=== PATIENT | male | born 2000 | race Caucasian/White ===

== ENCOUNTER → 2023-01-19 09:15 | Outpatient (BNV) | payer BC, SELFPAY | PROVIDERS: Visit Provider Clinical Nurse Specialist Psychiatric/Mental Health | DX: F21 Schizotypal disorder (principal); F32.9 Major depressive disorder, single episode, unspecified; F41.1 Generalized anxiety disorder | CPT/HCPCS: 90792 ==

== ENCOUNTER 2023-02-03 08:00 | Outpatient (RCR) | payer BC, SELFPAY ==
--- NOTE | 2023-01-20 11:22 | P.HPPSP_ITS ---
HPI Date of Service: 01/20/23 Chief Complaint: depression Sources of Information: patient interviewed, chart reviewed and crisis/core team assessment reviewed HPI Narrative: 22 yo with depression and anxiety who was referred by his sister. pt presents with low mood, anxiety, low energy, poverty of thought, low motivation, passive SI. He reports no social contacts, doesn't go out of house frequently; doesn't interact with family member much (although that is common and usual for his family- they do not converse, share meals, watch TV or play games, go on outings together) He reports disrupted sleep, low appetiteanhedonia, restlessness He is not on any psychiatric meds and does not want any. He states his sister was here in the Spring 2022 and found it helpful so when she urged him to get help he was willing to try program. Past Psychiatric History: no hx IPLOC, rehab, respite or PHP no outpatient treatment PMFSH Family History: born in [facility] when parents worked there for a year. lives in [place] w both bio parents and 2 siblings; He graduated HS and has not been employed or in school since then. Social History: grad HS no hx of employment no social connections plays [employer] and [employer] but plays by himself building a [employer] . Substance History: denies Trauma History: yes my brother was awful. vague details upon asking Meds/Allergies Meds Home Medications Medication Instructions Recorded Confirmed Type No Known Home Meds 01/20/23 01/20/23 History Allergies Allergies Allergy/AdvReac Type Severity Reaction Status Date / Time No Known Allergies Allergy Verified 01/20/23 11:21 Mental Status Exam Mental Status Exam Patient Appearance: Disheveled and Unkempt Patient Orientation: Person, Place, Time and Situation Level of Consciousness: Awake Patient Behavior: Appropriate, Passive, Suspicious, Anxious and Good Eye Contact Mood Description: Withdrawn, Constricted, Anxious and Apprehensive Affect Description: Constricted and Blunted Ability to Follow Directions: Fair Speech Pattern: Impoverished, Difficulty Finding Words and Long Pauses Hallucinations: None Delusions: Not Present Thought Process: Slowed Thinking Thought Content: positive for Poverty of Content Judgement: Poor Assessment & Plan Assessment & Plan (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 pt presents with low mood, anxiety, low energy, poverty of thought, low motivation, passive SI. He reports no social contacts, doesn't go out of house frequently; doesn't interact with family member much (although that is common and usual for his family- they do not converse, share meals, watch TV or play games, go on outings together) He reports disrupted sleep, low appetiteanhedonia, restlessness He is not on any psychiatric meds and does not want any. He states his sister was here in the Spring 2022 and found it helpful so when she urged him to get help he was willing to try program. plan admit to php group per protocol asked pt to consider getting blood wor done discussed option for medication after care pplanning Patient educated on: diagnosis, medication risk/benefits and therapeutic strategies Reason for continued partial hosp. stay Substantial Risk for: harm to self and inability to function Certification I certify that partial hospital treatment is medically necessary due to the symptoms and problems resulting from the patient's mental illness and the failure to treat the patient at the partial hospital level of care would likely result in the patient requiring inpatient psychiatric care which could not be prevented at a less intensive level of care. Time Spent With Patient Time: Total time managing care of this patient today ____ minutes.
[2023-01-20 11:38] VITALS: BP 99/69; PULSE 81; RESP 16; TEMP 37.1
[2023-01-20 13:40] VITALS: BMI 18.9
--- NOTE | 2023-01-20 17:01 | PC.ADMIT ---
22 year old male admitted to [facility] today, 01/20/23. Patient provided little information during nursing assessment. Patient guarded and not easily engaged. Patient was referred by his sister due to increased depression. Patient denies SI without plan or intent. Patient lives at home with his parents, patient has never been employed. Patient spends most of his time at home, alone. States he likes being alone. Patient does not currently have a PCP, Therapist or Psychiatrist. Patient is not on any medications. Patient denies any substance abuse. Safety plan reviewed with patient. Copy of Safety Plan given to patient. Patient was seen by Bhargavi Sawant APRN for medication appointment. Nursing assessment completed and charted.
--- NOTE | 2023-01-20 17:05 | HO.PHP ---
Clients case was reviewed and opened today in treatment team.
--- NOTE | 2023-01-26 09:36 | HO.PHP ---
[facility] staff informed Hector of the closest location she could find for OP therapy and med management, in which it was through [facility] ([facility] in [place]. Hector disclosed that he would like to look the facility up prior to signing a release of information. [facility] staff was receptive.
--- NOTE | 2023-02-02 12:14 | HO.PHP ---
[facility] staff followed up with Hector regarding OP therapy. Hector mentioned that he still needs to talk with his parents around the services. PHP staff reminded him that he is discharging tomorrow and if he needs a referral placed, she needs to know where he would like the clinician to contact. Hector was receptive and stated he will try to remember to talk with his mother. [facility] staff also provided Hector with resources of therapist near his area, that he can also contact. Hector was receptive.
--- NOTE | 2023-02-03 11:34 | PC.NURSE ---
I met with kong and asked him if he wanted me to make an appointment for a PCP as he does not have a PCP at this time. He stated he is working with his parents, whom he lives with, on getting a new PCP as he stated they have a place in mind that is close to his home.
== END 2023-02-03 23:59 | disposition home or self-care (01) ==
LOC: HO.PHPA 08:00
PROVIDERS: Visit Provider Psychiatry & Neurology Psychiatry
DX: F21 Schizotypal disorder (principal); F32.9 Major depressive disorder, single episode, unspecified; F41.1 Generalized anxiety disorder
CPT/HCPCS: 90791; 90853